=== PATIENT | female | born 1990 | race Caucasian/White ===

== ENCOUNTER 2016-09-05 | Outpatient (CLI) | payer BC, OTHER | END 2016-09-05 12:43 | disposition critical access hospital (66) | DX: R56.9 Unspecified convulsions (principal) | CPT/HCPCS: A0425; A0429 ==

== ENCOUNTER 2016-09-05 13:03 | Emergency (ER) | payer BC, OTHER ==
[2016-09-05] MEDS ORDERED: SODIUM CHLORIDE 0.9% 1,000 ML IV ONE (13:25)
== END 2016-09-05 15:02 | disposition home or self-care (01) ==
DX: G40.409 Other generalized epilepsy and epileptic syndromes, not intractable, without status epilepticus (principal); L20.84 Intrinsic (allergic) eczema

== ENCOUNTER 2017-07-29 15:17 | Outpatient (CLI) | payer BC | END 2017-07-29 15:18 | disposition critical access hospital (66) | LOC: EMS 15:17 | PROVIDERS: ATTEND Surgery | DX: R56.9 Unspecified convulsions (principal) | CPT/HCPCS: A0425; A0429 ==

== ENCOUNTER 2017-07-29 15:51 | Emergency (ER) | payer BC, OTHER ==
[2017-07-29] MEDS ORDERED: BUFFERED LIDOCAINE 10 ML SYRINGE SUBQ STA (16:17)
[2017-07-29] MEDS ORDERED: TETANUS/DIPHTHERIA/PERTUSSIS 0.5 ML SYRINGE IM ONE ×2 (16:17→17:27)
[2017-07-29] MEDS ORDERED: MORPHINE 2 MG/ML SYRINGE IVP STA (16:17)
--- NOTE | 2017-07-29 16:23 | ED Physician Documentation ---
PD HPI SEIZURE - Stated complaint Stated Complaint: SZ - Chief complaint Chief Complaint: Neuro - History obtained from History obtained from: Patient, EMS - History of Present Illness Timing - onset: Other (HBas sz d/o, last about 1 month ago. Maintained stably on keppra and lamictal. Does still drive thougb(discussed she cannot). Without warning she had a seizure going into work today. Injured R knee, lac under the chin with a lot of jaw pain.) Review of Systems Ten Systems: 10 systems reviewed and negative Constitutional: reports: Reviewed and negative Throat: reports: Reviewed and negative Cardiac: reports: Reviewed and negative Respiratory: reports: Reviewed and negative PD PAST MEDICAL HISTORY - Past Medical History Respiratory: Asthma Neuro: Seizure disorder - Past Surgical History Past Surgical History: No - Present Medications Home Medications: Ambulatory Orders Medication Instructions Recorded Confirmed Levetiracetam [Keppra] 250 mg ORAL DAILY 12/04/14 07/29/17 lamoTRIgine [Lamictal] 25 mg ORAL DAILY 12/04/14 07/29/17 Albuterol Sulfate [Proair Hfa 8.5 gm IH .FREQ 07/29/17 07/29/17 Inhaler] Cephalexin [Keflex] 500 mg PO QID #30 capsule 07/29/17 Fluticasone/Salmeterol [Advair 1 each IH .FREQ 07/29/17 07/29/17 100-50 Diskus] HYDROcod/ACETAM 5/325 [[place] 5/325] 1 - 2 ea PO Q6H PRN #15 tablet 07/29/17 - Allergies Allergies/Adverse Reactions: Allergies Allergy/AdvReac Type Severity Reaction Status Date / Time No Known Drug Allergies Allergy Verified 07/29/17 15:56 - Social History Does the pt smoke?: No Smoking Status: Never smoker Does the pt drink ETOH?: Yes Does the pt have substance abuse?: No - POLST Patient has POLST: No PD ED PE NORMAL - Vitals Vital signs reviewed: Yes - General General: Alert and oriented X 3, No acute distress - HEENT HEENT: PERRL, EOMI, Other (2cm laceration jagged under the chin) - Neck Neck: Supple, no meningeal sign, No bony TTP - Cardiac Cardiac: RRR, No murmur - Respiratory Respiratory: No respiratory distress, Clear bilaterally - Abdomen Abdomen: Soft, Non tender - Derm Derm: Normal color, Warm and dry - Extremities Extremities: Other (abrasions anterior R knee with tenderness of the patella but intact quad tendon. 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5 Baso # 0.0 Absolute Nucleated RBC 0.01 Nucleated RBC % 0.1 Sodium 136 Potassium 4.3 Chloride 110 Carbon Dioxide 21 Anion Gap 5.0 L BUN 5 L Creatinine 0.6 Estimated GFR (MDRD) 122 Glucose 96 Calcium 8.6 Total Bilirubin 0.7 AST 19 ALT 14 Alkaline Phosphatase 56 Total Protein 6.4 L Albumin 3.8 Globulin 2.6 Albumin/Globulin Ratio 1.5 Lipase 16 L Serum HCG, Qual NEGATIVE - Rads (name of study) CT Head/cspine/face Radiology: EMP read contemporaneously (See official reads, note made of the facial bones with potential foreign bodies in the wound, see medical decision making.) Procedures - Laceration (location) Chin Length in cm: 2 Wound type: Curved, Into subcut fat Anesthesia: Lidocaine 1% Wound Preparation: Irrigated copiously NS, Debrided moderately Skin layer closure: Nylon, Running, Size #-0 - enter number (5-0) Other: Patient tolerated well, No complications, Neurovascular intact Complexity: Intermediate PD MEDICAL DECISION MAKING - ED course ED course: 26-year-old with recurrent seizure, has a submental laceration. It was closed, after the CT read it was reopened and thoroughly explored. I could not find any foreign body in the wound. That is when the patient mentioned that she had a similar episode at age 14 and has had what she thought were rocks in her chin ever since so this may not be acute for her. This would explain why I cannot find the rocks in the wound. She was advised to follow-up with facial surgery if she develops infection Given the presence of foreign bodies. Departure - Departure Disposition: 01 Home, Self Care Clinical Impression: Grand mal seizure, Laceration Facial contusion Qualifiers: Encounter type: initial encounter Qualified Code(s): S00.83XA - Contusion of other part of head, initial encounter Neck sprain Qualifiers: Encounter type: initial encounter Qualified Code(s): S13.9XXA - Sprain of joints and ligaments of unspecified parts of neck, initial encounter Condition: Critical Instructions: ED Laceration All Prescriptions: Cephalexin [Keflex] 500 mg PO QID #30 capsule HYDROcod/ACETAM 5/325 [[place] 5/325] 1 - 2 ea PO Q6H PRN #15 tablet PRN Reason: Pain Comments: IT IS BOTH ILLEGAL AND DANGEROUS FOR YOU TO BE DRIVING! PER STATE LAW YOU CANNOT DRIVE UNLESS SEIZURE FREE FOR 6 MONTHS. As discussed you do have foreign bodies that are near but potentially not in your wound based on our conversation. That said if You develop an infection he should follow-up with a facial surgeon, the closest is in [place], . Come back for any signs of infection which would include: Redness, swelling, drainage, increased pain, or fevers. Follow-up with your physician in 7 days for suture removal. Your blood pressure was elevated today on check into the emergency department. This does not mean that you have hypertension, it is a common phenomenon to come to the emergency department and have elevated blood pressure. I recommend that you see your primary care physician within the week to have it rechecked when you are feeling better. Do not drink or drive while taking narcotic pain medication. Note that many narcotic pain relievers also contain Tylenol/acetaminophen. Please ensure that your total dose of acetaminophen from all sources does not exceed 3 g (3000 mg) per day. You may get constipated while on this medication. Take a stool softener such as Colace twice a day while you are on it. Also add an bnne-mzv-tbtvwck laxative such as senna or MiraLAX on any day that you do not have a bowel movement. If you received a narcotic pain medication or sedative while in the emergency department, do not drive for the next 24 hours. Discharge Date/Time: 07/29/17 18:34
[2017-07-29 16:31] LABS: BASOPHILS % (AUTO) 0.4 %; EOSINOPHILS # (AUTO) 0.5 10^3/uL (0.0-0.7); EOSINOPHILS % (AUTO) 8.4 %; HGB - HEMOGLOBIN 13.1 g/dL (12.0-16.0); LYMPHOCYTES # (AUTO) 0.8 10^3/uL (1.5-3.5); MEAN CORPUSCULAR HEMOGLOBIN 30.7 pg (27.0-31.0); MEAN CORPUSCULAR HGB CONC 33.1 g/dL (32.0-36.0); MEAN CORPUSCULAR VOLUME 92.6 fL (81.0-99.0); MEAN PLATELET VOLUME 8.7 fL (7.9-10.8); MONOCYTES # (AUTO) 0.4 10^3/uL (0.0-1.0); MONOCYTES % (AUTO) 7.5 %; NEUTROPHILS # (AUTO) 3.8 10^3/uL (1.5-6.6); NEUTROPHILS % (AUTO) 69.7 %; PLT - PLATELET COUNT 158 10^3/uL (130-450); RED BLOOD COUNT 4.26 10^6/uL (4.20-5.40); RED CELL DISTRIBUTION WIDTH 12.5 % (12.0-15.0); WHITE BLOOD COUNT 5.5 x10^3/uL (4.8-10.8)
[2017-07-29 16:43] LABS: ALBUMIN 3.8 g/dL (3.2-5.5); ALBUMIN/GLOBULIN RATIO 1.5 (1.0-2.2); BILIRUBIN,TOTAL 0.7 mg/dL (0.2-1.0); CALCIUM 8.6 mg/dL (8.5-10.3); CREATININE 0.6 mg/dL (0.4-1.0); TOTAL PROTEIN 6.4 g/dL (6.7-8.2)
[2017-07-29 16:53] LABS: HCG,QUALITATIVE BLOOD NEGATIVE
--- NOTE | 2017-07-29 16:55 | CT Preliminary Report ---
Exam: CT HEAD W/O IMPRESSION: Paranasal sinus inflammatory disease. Otherwise negative nonenhanced head CT. [facility] SITE ID: [id number]
--- NOTE | 2017-07-29 16:58 | CT Report ---
EXAM: CT HEAD EXAM DATE: 07/29/2017 04:40 PM. CLINICAL HISTORY: Seizure, head inj, facial inj, knee inj. COMPARISON: None. TECHNIQUE: Multiaxial CT images were obtained from the foramen magnum to the vertex. Reformats: Coron al. IV contrast: None. In accordance with CT protocol optimization, one or more of the following dose reduction techniques w ere utilized for this exam: automated exposure control, adjustment of mA and/or KV based on patient s ize, or use of iterative reconstructive technique. FINDINGS: Parenchyma: No intraparenchymal hemorrhage. No evidence of mass, midline shift, or CT findings of inf arction. Villa-white differentiation is distinct. Extraaxial Spaces: Normal for age. No subdural or epidural collections identified. Ventricles: Normal in size and position. Sinuses and Orbits: There is mild to moderate paranasal sinus mucosal thickening. Mastoid sinuses are clear. Bones: No evidence of fracture or calvarial defect. Other: None. IMPRESSION: Paranasal sinus inflammatory disease. Otherwise negative nonenhanced head CT. [facility] Referring Provider Line: [phone] SITE ID: [id number]
--- NOTE | 2017-07-29 17:00 | CT Preliminary Report ---
Exam: CT CERVICAL SPINE W/O IMPRESSION: 1. No fracture or subluxation of cervical spine. Disk height preserved. [facility] SITE ID: [id number]
--- NOTE | 2017-07-29 17:03 | CT Report ---
EXAM: CT CERVICAL SPINE WITHOUT CONTRAST DATE: 07/29/2017 04:40 PM. HISTORY: Seizure, head inj, facial inj, knee inj. COMPARISONS: None. TECHNIQUE: Thin-section axial images were acquired of the cervical spine without contrast. Post-proce ssing: Coronal and sagittal reformats. Other: None. In accordance with CT protocol optimization, one or more of the following dose reduction techniques w ere utilized for this exam: automated exposure control, adjustment of mA and/or KV based on patient s ize, or use of iterative reconstructive technique. FINDINGS: Alignment: No subluxation or scoliosis. There is straightening of normal cervical lordosis. Bones: No fracture. No lytic or destructive bone lesion. Interspace Levels/Facets: Disk height is maintained. No significant bony central spinal canal stenosis. Facet joints appear nor mal in alignment.1 Musculature: Normal. No fatty atrophy. Other: The paravertebral and prevertebral soft tissues are unremarkable. The lung apices are clear. IMPRESSION: 1. No fracture or subluxation of cervical spine. Disk height preserved. [facility] Referring Provider Line: [phone] SITE ID: [id number]
[2017-07-29] MEDS ORDERED: BUFFERED LIDOCAINE 10 ML SYRINGE ONE (17:05)
--- NOTE | 2017-07-29 17:08 | CT Preliminary Report ---
Exam: CT FACIAL BONES W/O IMPRESSION: 1. Laceration of the chin with a grouping of 5 subcutaneous foreign bodies measuring up to 4.7 mm in diameter 2. No fracture. [facility] SITE ID: [id number]
--- NOTE | 2017-07-29 17:10 | XRAY Preliminary Report ---
Exam: XR KNEE 4 VIEW RT IMPRESSION: No fracture or subluxation of the right knee [facility] SITE ID: [id number]
--- NOTE | 2017-07-29 17:10 | CT Report ---
EXAM: CT MAXILLOFACIAL WITHOUT CONTRAST EXAM DATE: 07/29/2017 04:40 PM. CLINICAL HISTORY: Seizure, head inj, facial inj, knee inj. COMPARISONS: None. TECHNIQUE: Thin-section axial images were acquired of the face without contrast. Post-processing: Cor onal and sagittal reformats. Other: None. In accordance with CT protocol optimization, one or more of the following dose reduction techniques w ere utilized for this exam: automated exposure control, adjustment of mA and/or KV based on patient s ize, or use of iterative reconstructive technique. FINDINGS: Soft Tissue: There is a grouping of 5 small radiodense foreign bodies near laceration at the midline chin. These foreign bodies are located within the subcutaneous tissue and measure up to 4.7 x 3.4 x 2 .5 mm in size. There is adjacent edema.There are upper normal lymph nodes. Orbits: Symmetric and unremarkable. Bones: No acute fracture. Temporomandibular Joints: The temporomandibular joints are symmetric and normally located. Sinuses: There is moderate mucosal thickening of the paranasal sinuses. No air-fluid level. Other: None. IMPRESSION: 1. Laceration of the chin with a grouping of 5 subcutaneous foreign bodies measuring up to 4.7 mm in diameter 2. No fracture. [facility] Referring Provider Line: [phone] SITE ID: [id number]
--- NOTE | 2017-07-29 17:13 | XRAY Report ---
EXAM: RIGHT KNEE RADIOGRAPHY EXAM DATE: 07/29/2017 04:52 PM. CLINICAL HISTORY: Seizure, head inj, facial inj, knee inj. COMPARISON: None. TECHNIQUE: 4 views. FINDINGS: Bones: Normal. No fractures or bone lesions. Joints: Normal. No effusion. No subluxations. Soft Tissues: Normal. No soft tissue swelling. IMPRESSION: No fracture or subluxation of the right knee [facility] Referring Provider Line: [phone] SITE ID: [id number]
[2017-07-29] MEDS ORDERED: MORPHINE 2 MG/ML SYRINGE ONE (17:26)
[2017-07-29] MEDS ORDERED: LIDOCAINE 1% 2 ML VIAL ONE (17:27)
[2017-07-29] MEDS ORDERED: cephALEXin 250 MG CAPSULE PO STA (17:49)
[2017-07-29 18:00] VITALS: BP 125/74
[2017-07-29] MEDS ORDERED: cephALEXin 250 MG CAPSULE PO ONE (18:12)
== END 2017-07-29 18:34 | disposition home or self-care (01) ==
LOC: ED 15:51
DX: G40.409 Other generalized epilepsy and epileptic syndromes, not intractable, without status epilepticus (principal); S01.81XA Laceration without foreign body of other part of head, initial encounter; S13.9XXA Sprain of joints and ligaments of unspecified parts of neck, initial encounter; W22.09XA Striking against other stationary object, initial encounter; Y99.0 Civilian activity done for income or pay; R03.0 Elevated blood-pressure reading, without diagnosis of hypertension; Z23 Encounter for immunization
CPT/HCPCS: 12011; 36415; 70450; 70486; 72125; 73564; 80053; 83690; 84703; 85025; 90471; 90715; 96374; 99283; 99284; A9270; J2270

== ENCOUNTER 2018-04-05 11:12 | Outpatient (CLI) | payer OTHER ==
[2018-04-05 11:36] LABS: BASOPHILS % (AUTO) 0.4 %; EOSINOPHILS # (AUTO) 0.2 10^3/uL (0.0-0.7); EOSINOPHILS % (AUTO) 2.4 %; LYMPHOCYTES # (AUTO) 0.8 10^3/uL (1.5-3.5); LYMPHOCYTES % (AUTO) 9.4 %; MEAN CORPUSCULAR HEMOGLOBIN 29.6 pg (27.0-31.0); MEAN CORPUSCULAR HGB CONC 33.9 g/dL (32.0-36.0); MEAN CORPUSCULAR VOLUME 87.3 fL (81.0-99.0); MEAN PLATELET VOLUME 8.4 fL (7.9-10.8); MONOCYTES # (AUTO) 0.9 10^3/uL (0.0-1.0); MONOCYTES % (AUTO) 9.8 %; NEUTROPHILS # (AUTO) 6.9 10^3/uL (1.5-6.6); PLT - PLATELET COUNT 222 10^3/uL (130-450); RED BLOOD COUNT 4.71 10^6/uL (4.20-5.40); RED CELL DISTRIBUTION WIDTH 13.1 % (12.0-15.0); WHITE BLOOD COUNT 8.9 x10^3/uL (4.8-10.8)
[2018-04-05 11:47] LABS: ALBUMIN 4.4 g/dL (3.2-5.5); ALBUMIN/GLOBULIN RATIO 1.3 (1.0-2.2); BILIRUBIN,TOTAL 1.1 mg/dL (0.2-1.0); CALCIUM 9.3 mg/dL (8.5-10.3); CREATININE 0.9 mg/dL (0.4-1.0); TOTAL PROTEIN 7.8 g/dL (6.7-8.2)
[2018-04-05 11:48] LABS: BILIRUBIN,URINE NEGATIVE (NEGATIVE); GLUCOSE, URINE (UA) NEGATIVE (NEGATIVE); KETONES,URINE (UA) >=80 mg/dL (NEGATIVE); LEUKOCYTE ESTERASE, URINE TRACE (NEGATIVE); NITRITE,URINE NEGATIVE (NEGATIVE); OCCULT BLOOD,URINE NEGATIVE (NEGATIVE); PROTEIN,URINE NEGATIVE (NEGATIVE); UROBILINOGEN,URINE 0.2 (NORMAL) E.U./dL (NORMAL)
[2018-04-05 11:49] LABS: CLARITY,URINE HAZY (CLEAR)
== END 2018-04-05 11:13 | disposition home or self-care (01) ==
LOC: LAB 11:12
PROVIDERS: ATTEND Specialist
DX: R10.30 Lower abdominal pain, unspecified (principal)
CPT/HCPCS: 36415; 80053; 81003; 82150; 83690; 85025

== ENCOUNTER 2018-04-05 12:11 | Outpatient (CLI) | payer OTHER ==
--- NOTE | 2018-04-05 15:44 | Ultrasound Report ---
Procedure Date: 04/05/2018 Accession Number: [id number] / [id number] Procedure: US - Abdomen Complete CPT Code: FULL RESULT: EXAM: ABDOMEN ULTRASOUND EXAM DATE: 04/05/2018 03:28 PM. CLINICAL HISTORY: Lower quadrant abdominal pain. COMPARISON: None. TECHNIQUE: Real-time scanning was performed with static images obtained. FINDINGS: Liver: Normal in size and echotexture. A 0.7 cm echogenic focus in the right lobe of the liver is felt to most likely represent a hemangioma, benign finding. The liver measures at least 13 cm. Main portal vein flow: Hepatopetal. Gallbladder: Gallbladder demonstrates wall echo shadow sign indicative of cholelithiasis. The sonographic Lacey sign is negative and there is no pericholecystic fluid or wall thickening. Biliary System: Common bile duct measures 3 mm. No intrahepatic or extrahepatic ductal dilatation. Pancreas: Visualized portion is unremarkable. Kidneys: Right: 10.1 cm longitudinally. Normal. No contour-deforming mass, stones, or hydronephrosis. Left: 9.4 cm longitudinally. Normal. No contour-deforming mass, stones, or hydronephrosis. Spleen: 8.9 cm. Normal in size and echotexture. Aorta and Inferior Vena Cava: Unremarkable. Other: The appendix is visualized in the right lower quadrant and appears normal in caliber and there is no right lower quadrant free fluid. A significant amount of free fluid is identified in the pelvis. Attempts to adequately visualize the ovaries transabdominally were unsuccessful. IMPRESSION: Free pelvic fluid. The patient denies a history of fevers but endorses increasing abdominal pain focally in the left lower quadrant since Tuesday. Given free fluid, exclusion of ovarian torsion or ectopic is felt prudent. Recommend transvaginal ultrasound to rule out torsion. [facility]
--- NOTE | 2018-04-05 17:23 | Ultrasound Report ---
Procedure Date: 04/05/2018 Accession Number: [id number] / [id number] Procedure: US - Pelvic w/Transvaginal CPT Code: FULL RESULT: EXAM: PELVIC ULTRASOUND EXAM DATE: 04/05/2018 05:06 PM. CLINICAL HISTORY: Left lower quadrant pain. LMP 03/18/2018. . 0. COMPARISON: None. TECHNIQUE: Realtime transabdominal pelvic scan performed to identify the uterus and adnexa and as an overview of other pelvic structures, followed by transvaginal scan to provide greater detail of the uterus and adnexa, with static image documentation. FINDINGS: Uterus: 7.8 x 3.5 x 4.9 cm, volume 70.0 cc. Anteverted position. Normal overall size and echotexture. Masses: None. Endometrium: 5.4 mm. Normal. Cervix: Unremarkable. Right Ovary: 3.2 x 2.1 x 2.0 cm, volume 7.0 cc. Normal echotexture and blood flow. Left Ovary: 2.9 x 2.0 x 2.0 cm, volume 6.1 cc. Normal echotexture and blood flow. Free Fluid: Trace amount. Other: None. IMPRESSION: Normal pelvic ultrasound. [facility]
== END 2018-04-05 12:12 | disposition home or self-care (01) ==
LOC: DI 12:11
PROVIDERS: ATTEND Specialist
DX: R10.30 Lower abdominal pain, unspecified (principal); N83.511 Torsion of right ovary and ovarian pedicle
CPT/HCPCS: 36415; 76700; 76830; 76856; 80053; 81003; 82150; 83690; 85025

== ENCOUNTER 2018-06-09 02:51 | Emergency (ER) | payer OTHER ==
[2018-06-09] MEDS ORDERED: ALBUTEROL NEB 2.5 MG/3 ML INH STA ×2 (03:25→03:49)
[2018-06-09] MEDS ORDERED: IPRATROPIUM/ALBUTEROL 3 ML NEB INH STA ×2 (03:25→03:49)
[2018-06-09] MEDS ORDERED: DEXAMETHASONE 10 MG/ML VIAL PO STA (03:49)
[2018-06-09] MEDS ORDERED: CHERRY SYRUP 10 ML UDC PO ONE (03:54)
--- NOTE | 2018-06-09 05:42 | ED Physician Documentation ---
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 The patient also continues to smoke. The patient presents with wheezing and shortness of breath. Symptoms are described as moderate. No relieving factors. No other associated symptoms. Review of Systems Constitutional: denies: Fever, Chills Eyes: denies: Discharge Ears: denies: Ear pain Nose: denies: Congestion Cardiac: denies: Chest pain / pressure Respiratory: reports: Dyspnea, Wheezing : denies: Dysuria Neurologic: denies: Generalized weakness Immunocompromised: denies: Chemotherapy PD PAST MEDICAL HISTORY - Past Medical History Past Medical History: Yes Respiratory: Asthma Neuro: Seizure disorder - Past Surgical History Past Surgical History: No - Present Medications Home Medications: Ambulatory Orders Medication Instructions Recorded Confirmed Levetiracetam [Keppra] 250 mg ORAL DAILY 12/04/14 07/29/17 lamoTRIgine [Lamictal] 25 mg ORAL DAILY 12/04/14 06/09/18 Albuterol Sulfate [Proair Hfa 8.5 gm IH .FREQ 07/29/17 07/29/17 Inhaler] Fluticasone/Salmeterol [Advair 1 each IH .FREQ 07/29/17 07/29/17 100-50 Diskus] - Allergies Allergies/Adverse Reactions: Allergies Allergy/AdvReac Type Severity Reaction Status Date / Time No Known Drug Allergies Allergy Verified 06/09/18 02:59 - Social History Does the pt smoke?: No Smoking Status: Never smoker Does the pt drink ETOH?: Yes Does the pt have substance abuse?: No - Immunizations Immunizations are current?: Yes - POLST Patient has POLST: No PD ED PE NORMAL - General General: Alert and oriented X 3, No acute distress - HEENT HEENT: Atraumatic, PERRL, EOMI, Ears normal - Neck Neck: Supple, no meningeal sign - Cardiac Cardiac: RRR, Strong equal pulses - Respiratory Respiratory: Other (Increased respiratory rate and Decreased aeration with scattered wheezing) - Derm Derm: Normal color - Extremities Extremities: No deformity - Neuro Neuro: Alert and oriented X 3, Normal speech - Psych Psych: Normal mood Results - Vitals Vitals: Vital Signs - 24 hr 06/09/18 06/09/18 06/09/18 02:55 03:31 05:04 Temperature 36.8 C Heart Rate 100 100 89 Respiratory 22 20 16 Rate Blood Pressure 135/73 H O2 Saturation 95 Oxygen O2 Source Room air PD MEDICAL DECISION MAKING - ED course ED course: The patient had significant improvement with treatments in the emergency department. Currently, the patient's much improved and appears appropriate for discharge. The patient will get her normal medications today from the pharmacy. The patient will return to the emergency department for any worsening or any concerns. The patient will otherwise follow-up with primary care. Departure - Departure Disposition: Home, Self Care Clinical Impression: Asthma Qualifiers: Asthma severity: mild Asthma persistence: intermittent Asthma complication type: with acute exacerbation Qualified Code(s): J45.21 - Mild intermittent asthma with (acute) exacerbation Condition: Good Instructions: ED Asthma Acute Ch Follow-Up: Judy Levy PA-C [Primary Care Provider] - Within 1 week Comments: Please return to the emergency department for worsening symptoms or any concerns
[2018-06-09 05:50] VITALS: BP 123/71
== END 2018-06-09 05:49 | disposition home or self-care (01) ==
LOC: ED 02:51
DX: J45.21 Mild intermittent asthma with (acute) exacerbation (principal); Z91.128 Patient's intentional underdosing of medication regimen for other reason
CPT/HCPCS: 94640; 94664; 99283; A9270

== ENCOUNTER 2018-08-04 14:49 | Outpatient (CLI) | payer OTHER | END 2018-08-04 14:50 | disposition critical access hospital (66) | LOC: EMS 14:49 | PROVIDERS: ATTEND Surgery | DX: R41.82 Altered mental status, unspecified (principal); S01.511A Laceration without foreign body of lip, initial encounter; V48.5XXA Car driver injured in noncollision transport accident in traffic accident, initial encounter; Y92.413 State road as the place of occurrence of the external cause | CPT/HCPCS: A0425; A0429 ==

== ENCOUNTER 2018-08-04 15:18 | Emergency (ER) | payer OTHER ==
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
[2018-08-04 16:15] LABS: BASOPHILS % (AUTO) 0.4 %; EOSINOPHILS # (AUTO) 0.8 10^3/uL (0.0-0.7); EOSINOPHILS % (AUTO) 7.9 %; HGB - HEMOGLOBIN 13.6 g/dL (12.0-16.0); LYMPHOCYTES % (AUTO) 9.6 %; MEAN CORPUSCULAR HEMOGLOBIN 30.1 pg (27.0-31.0); MEAN CORPUSCULAR VOLUME 88.3 fL (81.0-99.0); MEAN PLATELET VOLUME 8.5 fL (7.9-10.8); MONOCYTES # (AUTO) 0.5 10^3/uL (0.0-1.0); MONOCYTES % (AUTO) 4.8 %; NEUTROPHILS # (AUTO) 8.3 10^3/uL (1.5-6.6); NEUTROPHILS % (AUTO) 77.3 %; PLT - PLATELET COUNT 234 10^3/uL (130-450); RED BLOOD COUNT 4.53 10^6/uL (4.20-5.40); RED CELL DISTRIBUTION WIDTH 13.3 % (12.0-15.0); WHITE BLOOD COUNT 10.7 x10^3/uL (4.8-10.8)
[2018-08-04 16:29] LABS: ALBUMIN 4.1 g/dL (3.2-5.5); ALBUMIN/GLOBULIN RATIO 1.5 (1.0-2.2); ALKALINE PHOSPHATASE 58 IU/L (42-121); ALT ALANINE AMINOTRANSFERASE 24 IU/L (10-60); AST ASPARTATE AMINOTRANSFERASE 24 IU/L (10-42); BILIRUBIN,TOTAL 0.6 mg/dL (0.2-1.0); BUN - BLOOD UREA NITROGEN 10 mg/dL (6-20); CALCIUM 9.1 mg/dL (8.5-10.3); CARBON DIOXIDE - CO2 24 mmol/L (21-32); CHLORIDE 107 mmol/L (101-111); CREATININE 0.7 mg/dL (0.4-1.0); GFR - MDRD 101 (>89); GLUCOSE 107 mg/dL (70-100); LIPASE 23 U/L (22-51); SODIUM 135 mmol/L (135-145); TOTAL PROTEIN 6.8 g/dL (6.7-8.2)
--- NOTE | 2018-08-04 16:43 | CT Report ---
Reason: seizure-head injury with LOC Procedure Date: 08/04/2018 Accession Number: [id number] / [id number] Procedure: CT - Head W/O CPT Code: FULL RESULT: EXAM: CT HEAD EXAM DATE: 08/04/2018 04:23 PM. CLINICAL HISTORY: Seizure-head injury with LOC. COMPARISON: FACIAL BONES W/O 07/29/2017 4:36 PM HEAD W/O 07/29/2017 4:33 PM. TECHNIQUE: Multiaxial CT images were obtained from the foramen magnum to the vertex. Reformats: Sagittal and coronal. IV contrast: None. In accordance with CT protocol optimization, one or more of the following dose reduction techniques were utilized for this exam: automated exposure control, adjustment of mA and/or KV based on patient size, or use of iterative reconstructive technique. FINDINGS: Parenchyma: No intraparenchymal hemorrhage. No evidence of mass, midline shift, or CT findings of infarction. Villa-white differentiation is distinct. Extraaxial Spaces: Normal for age. No subdural or epidural collections identified. Ventricles: Normal in size and position. Sinuses and Orbits: Imaged paranasal sinuses, orbits, and mastoids show no significant abnormality. Paranasal sinus mucosal thickening seen before has resolved. Bones: No evidence of fracture or calvarial defect. Other: None. IMPRESSION: Normal head CT. RADIA
[2018-08-04] MEDS ORDERED: ACETAMINOPHEN 325 MG TABLET PO STA (17:55)
[2018-08-04 18:12] VITALS: BP 136/82
[2018-08-07 09:02] LABS: LAMOTRIGINE <0.5 mcg/mL (4.0-18.0)
== END 2018-08-04 18:12 | disposition home or self-care (01) ==
LOC: EDUNIT# → ED 15:18
DX: S00.93XA Contusion of unspecified part of head, initial encounter (principal); S01.512A Laceration without foreign body of oral cavity, initial encounter; V47.0XXA Car driver injured in collision with fixed or stationary object in nontraffic accident, initial encounter; Y92.410 Unspecified street and highway as the place of occurrence of the external cause; G40.909 Epilepsy, unspecified, not intractable, without status epilepticus; F17.200 Nicotine dependence, unspecified, uncomplicated; Z72.820 Sleep deprivation
CPT/HCPCS: 36415; 70450; 80053; 80175; 80177; 80320; 83690; 85025; 99283; 99284; A9270

== ENCOUNTER 2019-08-14 | Outpatient (CLI) | payer OTHER | END 2019-08-14 00:01 | disposition EMS.NT | LOC: EMS | PROVIDERS: ATTEND Surgery | DX: R56.9 Unspecified convulsions (principal) ==

== ENCOUNTER 2021-12-07 00:10 | Emergency (ER) | payer OTHER ==
--- NOTE | 2021-12-07 00:20 | ED Physician Documentation ---
PD HPI ABD PAIN - Stated complaint Stated Complaint: ABD PX - Chief complaint Chief Complaint: Abd Pain - History obtained from History obtained from: Patient - History of Present Illness Timing - onset: Enter time (10:00), Today Timing - details: Abrupt onset Pain level now: 4 Quality: Pain Location: RUQ, Epigastric Radiation: Other (does not radiate) Improved by: Eating, Position Worsened by: Position, Palpation Associated symptoms: No: Fever, Nausea, Vomiting, Diarrhea, Constipation Similar symptoms before: Has not had sx before Recently seen: Not recently seen - Additional information Additional information: c/o sudden onset epigastric and RUQ pain 10 AM today after eating. Pain has been episodic since then with some periods of resolution before recurring. Denies nausea, vomiting. Pain is worse after PO intake, as well as with palpation. Denies h/o similar symptoms Review of Systems Constitutional: reports: Reviewed and negative Cardiac: reports: Reviewed and negative Respiratory: reports: Reviewed and negative GI: reports: Abdominal Pain. denies: Nausea, Vomiting, Constipation, Diarrhea : denies: Dysuria, Frequency, Hematuria, Now EGA PD PAST MEDICAL HISTORY - Past Medical History Respiratory: Asthma Neuro: Seizure disorder - Past Surgical History Past Surgical History: No - Present Medications Home Medications: Ambulatory Orders Medication Instructions Recorded Confirmed Levetiracetam [Keppra] 250 mg ORAL DAILY 12/04/14 12/07/21 lamoTRIgine [Lamictal] 25 mg ORAL DAILY 12/04/14 12/07/21 Albuterol Sulfate [Proair Hfa 8.5 gm IH .FREQ 07/29/17 12/07/21 Inhaler] Fluticasone/Salmeterol [Advair 1 each IH .FREQ 07/29/17 12/07/21 100-50 Diskus] Dupilumab [Dupixent Pen] 300 mg SQ 1-2XD 12/07/21 12/07/21 Lidocaine Viscous 2% [Xylocaine 10 ml PO Q4H PRN #100 ml 12/07/21 Viscous 2%] - Allergies Allergies/Adverse Reactions: Allergies Allergy/AdvReac Type Severity Reaction Status Date / Time peanut Allergy Itching Verified 12/07/21 00:19 - Social History Does the pt smoke?: Yes Smoking Status: Current every day smoker Does the pt drink ETOH?: Yes Does the pt have substance abuse?: No - Immunizations Immunizations are current?: Yes - POLST Patient has POLST: No PD ED PE NORMAL - Vitals Vital signs reviewed: Yes - General General: Alert and oriented X 3, No acute distress, Well developed/nourished - HEENT HEENT: Moist mucous membranes - Neck Neck: Supple, no meningeal sign - Cardiac Cardiac: RRR, No murmur - Respiratory Respiratory: No respiratory distress, Clear bilaterally - Abdomen Abdomen: Soft, Non distended, Other (mild TTP epigastrium, RUQ) - Back Back: No CVA TTP - Derm Derm: No rash Results - Vitals Vitals: Oxygen O2 Source Room air - Labs Labs: Laboratory Tests 12/07/21 12/07/21 12/07/21 00:25 00:56 00:56 WBC 5.9 RBC 4.07 L Hgb 12.7 Hct 37.5 MCV 92.1 MCH 31.2 H MCHC 33.9 RDW 11.8 L Plt Count 198 MPV 10.6 Neut # (Auto) 2.5 Lymph # (Auto) 2.0 [place] # (Auto) 0.5 Eos # (Auto) 0.8 H Baso # (Auto) 0.1 Absolute Nucleated RBC 0.00 Nucleated RBC % 0.0 Sodium 134 L Potassium 3.5 Chloride 104 Carbon Dioxide 23 Anion Gap 7.0 BUN 7 Creatinine 0.6 Estimated GFR (MDRD) 118 Glucose 104 H Calcium 8.9 Total Bilirubin 0.4 AST 13 ALT < 10 L Alkaline Phosphatase 50 Total Protein 6.4 L Albumin 3.8 Globulin 2.6 Albumin/Globulin Ratio 1.5 Lipase 32 Urine Color YELLOW Urine Clarity CLEAR Urine pH 6.0 Ur Specific [place] >=1.030 H Urine Protein NEGATIVE Urine Glucose (UA) NEGATIVE Urine Ketones NEGATIVE Urine Occult Blood NEGATIVE Urine Nitrite NEGATIVE Urine Bilirubin NEGATIVE Urine Urobilinogen 0.2 (NORMAL) Ur Leukocyte Esterase SMALL H Urine RBC 0-5 Urine WBC 0-3 Ur Squamous Epith Cells MANY Squamous H Urine Bacteria Few Ur Microscopic Review INDICATED Urine Culture Comments NOT INDICATED Urine HCG, Qual NEGATIVE PD MEDICAL DECISION MAKING - ED course Complexity details: reviewed results, re-evaluated patient, considered differential, d/w patient ED course: c/o upper abdominal pain since 10 AM, episodic. No concerning findings on UA, blood tests (includes normal WBC, unremarkable LFTs, normal lipase). Ultrasound is not available at [facility] at this time; I performed a bedside ultrasound and find no evidence of gallbladder dilatation nor gallbladder calculi. She is negative for sonographic [place] sign. She is given IM toradol, and PO protonix, viscous lidocaine/maalox. Ulcer, gastritis remain on differential. Could still be biliary colic and if symptoms persist or recur and are s/o biliary colic, might benefit from repeat US by senior product designer. Other possible tests for recurrent/persistent symptoms could include CT (transverse colon diverticulitis, though doubtful at this time), upper endoscopy (PUD, gastritis). Results d/w patient, return precautions reviewed Departure - Departure Disposition: Home, Self Care Clinical Impression: Abdominal pain Qualifiers: Abdominal location: epigastric Qualified Code(s): R10.13 - Epigastric pain Condition: Good Instructions: ED Abdominal Pain Female Non-Specific Abdominal Pain Prescriptions: Lidocaine Viscous 2% [Xylocaine Viscous 2%] 10 ml PO Q4H PRN #100 ml PRN Reason: Abdominal Pain Comments: As we discussed, there are no remarkable findings on your blood tests and urinalysis tonight. The cause of your pain is not apparent at this time. You might need further testing, particularly if your symptoms persists. Contact your primary care provider's office in the morning to arrange for next available appointment. I recommend that you take an acid-blocking medication once a day for 2 weeks such as prilosec or nexium (both available OTC); your symptoms could possibly be due to an ulcer, which won't show up on tests that can be performed in the emergency department (typically diagnosed with an upper endoscopy). As most people tolerate these acid-blocking medications well, it is reasonable to try one for a two-week trial to see if that abates symptoms. I have also submitted a prescription to [email or web address] in [place] for lidocaine. This is one of the liquid medications given to you in the emergency department; it can be mixed with maalox (1-2 tablespoons) to make it more palatable. The lidocaine is a numbing agent for mucous membranes, and some patients have relief of discomfort related to gastritis/ulcers with it. It is only an as-needed medication. Forms: Activity restrictions Discharge Date/Time: 12/07/21 02:41
[2021-12-07 00:54] LABS: BACTERIA,URINE Few /HPF (None Seen); BILIRUBIN,URINE NEGATIVE (NEGATIVE); CLARITY,URINE CLEAR (CLEAR); GLUCOSE, URINE (UA) NEGATIVE (NEGATIVE); HCG UR QUAL NEGATIVE; KETONES,URINE (UA) NEGATIVE (NEGATIVE); LEUKOCYTE ESTERASE, URINE SMALL (NEGATIVE); NITRITE,URINE NEGATIVE (NEGATIVE); OCCULT BLOOD,URINE NEGATIVE (NEGATIVE); PROTEIN,URINE NEGATIVE (NEGATIVE); RBC,URINE 0-5 /HPF (0-5); SQUAMOUS EPITHELIAL CELL,UR MANY Squamous (<= Few); UROBILINOGEN,URINE 0.2 (NORMAL) E.U./dL (NORMAL); WBC,URINE 0-3 /HPF (0-5)
[2021-12-07 01:01] LABS: BASOPHILS # (AUTO) 0.1 10^3/uL (0.0-0.1); EOSINOPHILS # (AUTO) 0.8 10^3/uL (0.0-0.7); EOSINOPHILS % (AUTO) 13.8 %; HCT - HEMATOCRIT 37.5 % (37.0-47.0); HGB - HEMOGLOBIN 12.7 g/dL (12.0-16.0); LYMPHOCYTES % (AUTO) 34.1 %; MEAN CORPUSCULAR HEMOGLOBIN 31.2 pg (27.0-31.0); MEAN CORPUSCULAR HGB CONC 33.9 g/dL (32.0-36.0); MEAN CORPUSCULAR VOLUME 92.1 fL (81.0-99.0); MEAN PLATELET VOLUME 10.6 fL (7.9-10.8); MONOCYTES # (AUTO) 0.5 10^3/uL (0.0-1.0); MONOCYTES % (AUTO) 7.8 %; NEUTROPHILS # (AUTO) 2.5 10^3/uL (1.5-6.6); NEUTROPHILS % (AUTO) 43.1 %; PLT - PLATELET COUNT 198 10^3/uL (130-450); RED BLOOD COUNT 4.07 10^6/uL (4.20-5.40); RED CELL DISTRIBUTION WIDTH 11.8 % (12.0-15.0); WHITE BLOOD COUNT 5.9 x10^3/uL (4.8-10.8)
[2021-12-07 01:14] LABS: ALBUMIN 3.8 g/dL (3.2-5.5); ALBUMIN/GLOBULIN RATIO 1.5 (1.0-2.2); ALKALINE PHOSPHATASE 50 IU/L (42-121); ALT ALANINE AMINOTRANSFERASE < 10 IU/L (10-60); AST ASPARTATE AMINOTRANSFERASE 13 IU/L (10-42); BILIRUBIN,TOTAL 0.4 mg/dL (0.2-1.0); BUN - BLOOD UREA NITROGEN 7 mg/dL (6-20); CALCIUM 8.9 mg/dL (8.5-10.3); CARBON DIOXIDE - CO2 23 mmol/L (21-32); CHLORIDE 104 mmol/L (101-111); CREATININE 0.6 mg/dL (0.4-1.0); GFR - MDRD 118 (>89); GLUCOSE 104 mg/dL (70-100); LIPASE 32 U/L (22-51); POTASSIUM 3.5 mmol/L (3.5-5.0); SODIUM 134 mmol/L (135-145); TOTAL PROTEIN 6.4 g/dL (6.7-8.2)
[2021-12-07] MEDS ORDERED: PANTOPRAZOLE 40 MG TABLET PO STA (02:06)
[2021-12-07] MEDS ORDERED: KETOROLAC 60 MG/2 ML VIAL IM STA (02:06)
[2021-12-07] MEDS ORDERED: MAG HYDROX/AL HYDROX/SIMETH 30 ML UDC PO STA (02:07)
[2021-12-07] MEDS ORDERED: LIDOCAINE VISCOUS 2% 15 ML UDC MM STA (02:07)
[2021-12-07 02:41] VITALS: BP 118/77
== END 2021-12-07 02:41 | disposition home or self-care (01) ==
LOC: ED 00:10
DX: R10.13 Epigastric pain (principal); F17.200 Nicotine dependence, unspecified, uncomplicated
CPT/HCPCS: 36415; 80053; 81001; 81025; 83690; 85025; 99282; A9270; 81003; 87086